=== PATIENT | male | born 1960 | race Caucasian/White ===

== ENCOUNTER → 2024-03-02 10:32 | Day surgery (SDC) | payer OTHER, SELFPAY ==
[2024-03-02] VITALS (12 sets, daily range): BP systolic 97–119; BP diastolic 59–84; BMI 48.1
[2024-03-02] MEDS: NSS 431 ML IV (11:05)
--- NOTE | 2024-03-02 12:10 | ITS.CL.CATH ---
[facility] - Catheterization
Cardiac Catheterization
Procedure Report:
CARDIAC CATHETERIZATION REPORT
Date of Procedure: 03/02/2024
Referring: Prem Armenta DO
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
HEMODYNAMIC DATA
AO: 119/75
LV: Not done
LEFT VENTRICULOGRAPHY: Not done as we chose not to cross the bioprosthetic valve
CORONARY ANGIOGRAPHY
Dominance: Right
Left Main: Normal. There is no visible calcification of the left main and there is certainly no evidence of any obstructive disease
LAD: Trivial luminal irregularities
Circumflex: Normal
RCA: Trivial luminal irregularities in a large dominant vessel
Closure Device: None-the procedure was performed via the right radial artery. The Jamar's test was normal prior to the procedure.
Radiation (mGy): 637
DAP (cm2.Gy): 48.6
Fluoroscopy time: 3.1 minutes
CONCLUSIONS
1: No significant CAD. Specifically there is no obstruction of the left main coronary artery
2: Recommend long-term aspirin therapy. There is mild calcification of the LAD and would therefore recommend statin to achieve LDL less than 70
Copy to: Prem Armenta DO, Barb Bennett PA-C
Jayy Almaguer MD, FAC, [facility]
[2024-03-02] MEDS: NSS 1000 IV (13:01)
== END | disposition home or self-care (01) ==
LOC: CATH 10:32
PROVIDERS: ATTENDING PHYSICIAN Internal Medicine Cardiovascular Disease; FAMILY PHYSICIAN Physician Assistant; OTHER PHYSICIAN Internal Medicine Cardiovascular Disease
DX: I25.10 Atherosclerotic heart disease of native coronary artery without angina pectoris (principal); Z79.82 Long term (current) use of aspirin; I25.84 Coronary atherosclerosis due to calcified coronary lesion; Z95.2 Presence of prosthetic heart valve
CPT/HCPCS: 93454; C1894; Q9967